=== PATIENT | male | born 1960 | race Caucasian/White ===

== ENCOUNTER 2021-05-24 12:20 | Inpatient (IN) | payer BC, MEDICAID ==
[~2021-05-24] VITALS: Ht 180.3 cm; Wt 81.6 kg
[2021-05-24 13:50] LABS: Albumin 2.7 g/dL (3.4-5.0); Calcium 7.9 mg/dL (8.5-10.1); Potassium 3.6 mmol/L (3.5-5.1)
[2021-05-24 13:52] LABS: BUN/Creatinine Ratio 14.8; CRP High Sensitivity 0.43 mg/dL (< 0.3); Total Protein 6.9 g/dL (6.4-8.2)
[2021-05-24 13:52] LABS: Urine Bacteria FEW /hpf (None Seen); Urine Blood 1+ /uL (Negative); Urine Hyaline Cast FEW /lpf (0 - 2); Urine Mucus FEW (None Seen); Urine Specific Gravity 1.023 (1.001-1.035); Urine WBC 2 /hpf (0 - 3)
[2021-05-24 14:24] LABS: Hematocrit 44.6 % (41.0-53.0); Mean Corpuscular Hgb Conc. 33.6 g/dL (32.0-36.0); Mean Corpuscular Volume 98.2 fL (80.0-100.0); Red Blood Cells 4.54 10^6/uL (4.5-5.90); Red Cell Distribution Width 15.6 % (11.8-14.3)
[2021-05-24 14:28] LABS: White Blood Cell 1.3 10^3/uL (4.4-10.8)
[2021-05-24 14:29] LABS: INR 1.42 (0.9-1.15); Partial Thromboplastin Time 36.4 sec (23.6-33.0)
[2021-05-24 14:29] LABS: Basophils % (manual) 0 (0.0-2.0); Blast Cells 0; Metamyelocytes % 0; Myelocytes % 0; Promyelocytes % 0; Reactive Lymphocytes 0
[2021-05-24 16:07] LABS: Band Neutrophils % (manual) 4; Eosinophils % (manual) 1 (0-7); Lymphocytes % (manual) 39 (10.0-50.0); Monocytes % (manual) 13 (0-12)
[2021-05-24] MEDS ORDERED: NITROGLYCERIN 0.4 MG SL TAB SL PRN (16:30)
[2021-05-24] MEDS ORDERED: MORPHINE SULFATE INJECTION 2 MG/ML SYRG IV PRN ×2 (16:30→18:45)
[2021-05-24] MEDS ORDERED: PANTOPRAZOLE 40 MG/10 ML VIAL INJ IV ONE (17:00)
[2021-05-24] MEDS ORDERED: cefTRIAXone 1GM/50ML D5W 50 ML IV ONE (18:45)
[2021-05-24] MEDS ORDERED: ONDANSETRON HCL 4 MG/2 ML VIAL IV PRN (18:45)
[2021-05-24] MEDS ORDERED: LORazepam 0.5 MG TAB PO PRN (18:45)
[2021-05-24] MEDS ORDERED: ALBUMIN 25% 100 ML IV ONE (18:45)
[2021-05-24] MEDS: ALBUMIN 25% 100 ML IV SCH (21:00)
[2021-05-24 21:23] LABS: Cholesterol 102 mg/dL (< 200); HDL Cholesterol 11 mg/dL (40-59); LDL Cholesterol 67 mg/dL (< 100); Triglycerides 101 mg/dL (< 150)
[2021-05-24] MEDS: LACTULOSE 20Gm/30ML SOLN PO SCH (23:29)
[2021-05-24] MEDS: PROPRANOLOL HCL 20 MG TAB PO SCH (23:48)
[2021-05-25] MEDS: LACTULOSE 20Gm/30ML SOLN PO SCH ×4 (02:00→13:14)
[2021-05-25] MEDS: ALBUMIN 25% 100 ML IV SCH ×2 (02:31→10:51)
[2021-05-25 08:38] VITALS: BP 129/89
[2021-05-25] MEDS ORDERED: cefTRIAXone 1GM/50ML D5W 50 ML IV SCH (09:00)
[2021-05-25] MEDS: PROPRANOLOL HCL 20 MG TAB PO SCH ×2 (09:16→21:20)
[2021-05-25] MEDS ORDERED: PANTOPRAZOLE 40 MG/10 ML VIAL INJ IV SCH (10:00)
[2021-05-25 10:05] LABS: Hemoglobin 13.2 g/dL (13.5-17.5)
[2021-05-25 10:08] LABS: Hematocrit 38.7 % (41.0-53.0); Mean Corpuscular Hemoglobin 33.4 pg (28.0-32.0); Mean Corpuscular Hgb Conc. 34.1 g/dL (32.0-36.0); Mean Corpuscular Volume 97.8 fL (80.0-100.0); Red Blood Cells 3.96 10^6/uL (4.5-5.90); Red Cell Distribution Width 15.6 % (11.8-14.3)
[2021-05-25 10:10] LABS: Potassium 3.8 mmol/L (3.5-5.1)
[2021-05-25 10:20] LABS: Folate (Folic Acid) 9.26 ng/mL (5.38-24)
[2021-05-25 10:44] LABS: White Blood Cell 1.2 10^3/uL (4.4-10.8)
[2021-05-25 10:46] LABS: Basophils % (manual) 0 (0.0-2.0); Blast Cells 0; Eosinophils % (manual) 0 (0-7); Metamyelocytes % 0; Myelocytes % 0; Promyelocytes % 0; Reactive Lymphocytes 0
[2021-05-25 10:47] LABS: Albumin 2.7 g/dL (3.4-5.0); BUN/Creatinine Ratio 14.5; Bilirubin, Total 0.9 mg/dL (0.2-1.0); Calcium 7.6 mg/dL (8.5-10.1); Magnesium 2.6 mg/dL (1.6-2.6); Phosphorus 2.7 mg/dL (2.5-4.90); Total Protein 5.8 g/dL (6.4-8.2)
[2021-05-25 10:53] LABS: INR 1.54 (0.9-1.15); Partial Thromboplastin Time 37.9 sec (23.6-33.0)
[2021-05-25 13:00] VITALS: BP 125/82
[2021-05-25 13:15] LABS: Band Neutrophils % (manual) 1; Lymphocytes % (manual) 40 (10.0-50.0); Monocytes % (manual) 14 (0-12)
[2021-05-25 16:31] VITALS: BP 113/78
[2021-05-25] MEDS: SPIRONOLACTONE 25 MG TAB PO SCH (17:05)
[2021-05-25 19:06] LABS: Alcohol, Urine < 3.0 mg/dL (0-10); Amphetamine Screen, Urine NEGATIVE (NEGATIVE); Barbiturate Scree,Urine NEGATIVE (NEGATIVE); Benzodiazephine Screen, Urine NEGATIVE (NEGATIVE); Cocaine Screen, Urine NEGATIVE (NEGATIVE); Opiate Scree,Urine NEGATIVE (NEGATIVE); Phencyclidine Screen, Urine NEGATIVE (NEGATIVE)
[2021-05-25 19:13] LABS: Cannabinoid Screen, Urine POSITIVE (NEGATIVE)
[2021-05-25 21:34] VITALS: BP 119/83
[2021-05-26 05:00] VITALS: BP 118/81
[2021-05-26] MEDS: SPIRONOLACTONE 25 MG TAB PO SCH (06:35)
[2021-05-26 08:33] VITALS: BP 129/92
[2021-05-26] MEDS ORDERED: PANTOPRAZOLE 40 MG TAB PO SCH (10:00)
[2021-05-26] MEDS: PROPRANOLOL HCL 20 MG TAB PO SCH (10:01)
[2021-05-26 10:44] LABS: Hepatitis B Surface Antibody Negative (Negative)
[2021-05-26 11:13] LABS: Hepatitis A Total Antibody Negative (Negative)
[2021-05-26] MEDS ORDERED: PROP20TA73 PO (11:26)
[2021-05-26] MEDS ORDERED: PANT40T PO (11:26)
[2021-05-26] MEDS ORDERED: FURO20TA3 PO (11:26)
[2021-05-26] MEDS ORDERED: SPIR25TA PO (11:26)
[2021-05-26 11:44] LABS: Hepatitis A Ab IgM Negative; Hepatitis B Core IgM Negative
[2021-05-26 11:46] LABS: Hepatitis C Antibody Positive (Negative)
[2021-05-26 11:52] LABS: Hepatitis C Antibody Positive (Negative)
[2021-05-26 12:00] VITALS: BP 136/90
== END 2021-05-26 13:27 | disposition home or self-care (01) | DRG 280 ==
LOC: ER 12:20 → TELE 16:20 → EAST 05-25 05:11 → TELE-EAST 05-25 05:40 → EAST 05-25 17:42
PROVIDERS: ADMIT Hospitalist; ATTEND Internal Medicine
PROC: 0W9G3ZZ Drainage of Peritoneal Cavity, Percutaneous Approach (ICD-10-PCS; principal; 2021-05-25)
DX: K70.11 Alcoholic hepatitis with ascites (principal); U07.1 COVID-19; D61.818 Other pancytopenia; D68.4 Acquired coagulation factor deficiency; K29.20 Alcoholic gastritis without bleeding; K72.90 Hepatic failure, unspecified without coma; K76.6 Portal hypertension; F10.10 Alcohol abuse, uncomplicated; D72.819 Decreased white blood cell count, unspecified; F17.210 Nicotine dependence, cigarettes, uncomplicated; F19.90 Other psychoactive substance use, unspecified, uncomplicated; K59.00 Constipation, unspecified; L03.119 Cellulitis of unspecified part of limb; K74.60 Unspecified cirrhosis of liver; Z80.9 Family history of malignant neoplasm, unspecified; Z83.3 Family history of diabetes mellitus
CPT/HCPCS: 36415; 49083; 71045; 74176; 76705; 76942; 80053; 80061; 80074; 80307; 81001; 82105; 82140; 82378; 82728; 82746; 83036; 83605; 83690; 83735; 83880; 83986; 84100; 84443; 84484; 84550; 85007; 85027; 85379; 85610; 85730; 86141; 86301; 86704; 86706; 86708; 86803; 87040; 87086; 87205; 87340; 87426; 89051; 93005; 93306; 96365; 96375; 99291; C9113; G0378; J0696; P9047

== ENCOUNTER → 2021-07-12 10:33 | Emergency (ER) | payer MEDICAID ==
[~2021-07-12] VITALS: Ht 180.3 cm; Wt 77.1 kg
[~2021-07-12 10:33] MED LIST: FURO20TA3 PO; PANT40T PO; PROP20TA73 PO; SPIR25TA PO
[2021-07-12 11:18] LABS: Basophils # (auto) 0.2 10 ^3/uL (0-0.2); Eosinophils # (auto) 0 10 ^3/uL (0-0.8); Lymphocytes # (auto) 0.8 10 ^3/uL (0.4-5.4); Lymphocytes % (auto) 14.8 % (10.0-50.0); White Blood Cell 5.4 10^3/uL (4.4-10.8)
[2021-07-12 11:19] LABS: Basophils % (auto) 3.5 % (0.0-2.0); Eosinophils % (auto) 0.1 % (0.0-7.0); Hematocrit 43.1 % (41.0-53.0); Mean Corpuscular Hemoglobin 34.7 pg (28.0-32.0); Mean Corpuscular Hgb Conc. 34.8 g/dL (32.0-36.0); Mean Corpuscular Volume 99.7 fL (80.0-100.0); Monocytes # (auto) 0.5 10 ^3/uL (0-1.3); Monocytes % (auto) 8.5 % (0.0-12.0); Neutrophils % (auto) 73.1 % (37.0-80.0); Nucleated Red Blood Cells % 0.2 %; Red Blood Cells 4.33 10^6/uL (4.5-5.90); Red Cell Distribution Width 17.8 % (11.8-14.3)
[2021-07-12 11:27] VITALS: BP 133/94
[2021-07-12 11:39] LABS: Albumin 2.7 g/dL (3.4-5.0); Calcium 8.8 mg/dL (8.5-10.1); Potassium 3.8 mmol/L (3.5-5.1)
[2021-07-12 11:45] LABS: BUN/Creatinine Ratio 17.6; Bilirubin, Total 2.8 mg/dL (0.2-1.0); Total Protein 7.2 g/dL (6.4-8.2)
[2021-07-12 13:36] LABS: INR 1.43 (0.9-1.15)
== END | disposition home or self-care (01) ==
LOC: ER 10:33
DX: K76.9 Liver disease, unspecified (principal); R18.8 Other ascites; R74.8 Abnormal levels of other serum enzymes; I10 Essential (primary) hypertension; F17.210 Nicotine dependence, cigarettes, uncomplicated; Z79.899 Other long term (current) drug therapy
CPT/HCPCS: 36415; 71045; 76705; 80053; 83690; 84484; 85025; 85610

== ENCOUNTER 2021-09-07 14:18 | Inpatient (IN) | payer MEDICAID ==
[~2021-09-07] VITALS: Ht 180.3 cm; Wt 74.3 kg
[2021-09-07] MEDS ORDERED: FUROSEMIDE 100 MG/10ML VIAL IV ONE (16:30)
[2021-09-07 17:35] LABS: Hematocrit 42.1 % (41.0-53.0)
[2021-09-07 17:36] LABS: Hemoglobin 14.8 g/dL (13.5-17.5); Mean Corpuscular Hemoglobin 37.8 pg (28.0-32.0); Mean Corpuscular Hgb Conc. 35.2 g/dL (32.0-36.0); Mean Corpuscular Volume 107.4 fL (80.0-100.0); Red Blood Cells 3.92 10^6/uL (4.5-5.90); Red Cell Distribution Width 15.6 % (11.8-14.3); White Blood Cell 10.5 10^3/uL (4.4-10.8)
[2021-09-07 17:39] LABS: Basophils % (manual) 0 (0.0-2.0); Blast Cells 0; Eosinophils % (manual) 0 (0-7); Metamyelocytes % 0; Myelocytes % 0; Promyelocytes % 0; Reactive Lymphocytes 0
[2021-09-07 17:45] LABS: Albumin 2.1 g/dL (3.4-5.0); Potassium 5.4 mmol/L (3.5-5.1)
[2021-09-07 17:47] LABS: BUN/Creatinine Ratio 22.5
[2021-09-07 17:59] LABS: Bilirubin, Total 15.7 mg/dL (0.2-1.0); Total Protein 6.9 g/dL (6.4-8.2)
[2021-09-07 18:26] LABS: INR 2.09 (0.9-1.15); Partial Thromboplastin Time 33.9 sec (23.6-33.0)
[2021-09-07 19:28] LABS: Band Neutrophils % (manual) 2; Lymphocytes % (manual) 6 (10.0-50.0); Monocytes % (manual) 6 (0-12)
[2021-09-07] MEDS ORDERED: SODIUM ZIRCONIUM CYCL 10 GM PAK PO ONE (21:30)
[2021-09-07] MEDS ORDERED: ONDANSETRON HCL 4 MG/2 ML VIAL IV PRN (21:30)
[2021-09-07] MEDS: PROPRANOLOL HCL 20 MG TAB PO SCH (22:00)
[2021-09-08 05:00] VITALS: BP 123/85
[2021-09-08 05:23] LABS: Hematocrit 41.2 % (41.0-53.0); Hemoglobin 14.5 g/dL (13.5-17.5); Mean Corpuscular Hemoglobin 38.1 pg (28.0-32.0); Mean Corpuscular Hgb Conc. 35.2 g/dL (32.0-36.0); Mean Corpuscular Volume 108.1 fL (80.0-100.0); Red Blood Cells 3.82 10^6/uL (4.5-5.90); Red Cell Distribution Width 16.5 % (11.8-14.3); White Blood Cell 17.7 10^3/uL (4.4-10.8)
[2021-09-08 05:40] LABS: Calcium 9.7 mg/dL (8.5-10.1); Potassium 5.3 mmol/L (3.5-5.1)
[2021-09-08 05:42] LABS: BUN/Creatinine Ratio 25.2
[2021-09-08 05:55] LABS: Bilirubin, Total 15.8 mg/dL (0.2-1.0); Total Protein 6.5 g/dL (6.4-8.2)
[2021-09-08] MEDS ORDERED: SPIRONOLACTONE 25 MG TAB PO SCH (06:00)
[2021-09-08 06:11] LABS: Band Neutrophils % (manual) 0; Basophils % (manual) 0 (0.0-2.0); Blast Cells 0; Eosinophils % (manual) 0 (0-7); Metamyelocytes % 0; Myelocytes % 0; Promyelocytes % 0; Reactive Lymphocytes 0
[2021-09-08 07:47] LABS: Lymphocytes % (manual) 15 (10.0-50.0); Monocytes % (manual) 8 (0-12)
[2021-09-08 08:32] VITALS: BP 103/66
[2021-09-08] MEDS: PROPRANOLOL HCL 20 MG TAB PO SCH ×2 (09:39→21:30)
[2021-09-08] MEDS: FUROSEMIDE 40 MG TAB PO SCH (09:40)
[2021-09-08] MEDS: PANTOPRAZOLE 40 MG TAB PO SCH (09:40)
[2021-09-08 13:00] VITALS: BP 121/74
[2021-09-08 17:00] VITALS: BP 94/69
[2021-09-08 22:00] VITALS: BP 114/62
[2021-09-09] VITALS (9 sets, daily range): BP systolic 79–124; BP diastolic 44–85
[2021-09-09] MEDS ORDERED: HYDROcodone-ACET 5/325MG TAB PO PRN (03:00)
[2021-09-09] MEDS ORDERED: MORPHINE SULFATE INJ 2 MG/ml SYRG IV PRN (03:00)
[2021-09-09 06:12] LABS: Hematocrit 41.7 % (41.0-53.0); Hemoglobin 14.6 g/dL (13.5-17.5); Mean Corpuscular Volume 108.5 fL (80.0-100.0); Red Blood Cells 3.84 10^6/uL (4.5-5.90); Red Cell Distribution Width 16.8 % (11.8-14.3); White Blood Cell 27.3 10^3/uL (4.4-10.8)
[2021-09-09 06:21] LABS: Band Neutrophils % (manual) 0; Basophils % (manual) 0 (0.0-2.0); Blast Cells 0; Metamyelocytes % 0; Myelocytes % 0; Promyelocytes % 0; Reactive Lymphocytes 0
[2021-09-09 06:24] LABS: INR 2.96 (0.9-1.15); Partial Thromboplastin Time 35.7 sec (23.6-33.0)
[2021-09-09 06:29] LABS: Albumin 2.1 g/dL (3.4-5.0); Calcium 9.2 mg/dL (8.5-10.1); Magnesium 2.9 mg/dL (1.6-2.6)
[2021-09-09 06:33] LABS: Bilirubin, Total 20.8 mg/dL (0.2-1.0); Total Protein 6.5 g/dL (6.4-8.2)
[2021-09-09 06:36] LABS: BUN/Creatinine Ratio 23.8
[2021-09-09 06:38] LABS: Potassium 6.1 mmol/L (3.5-5.1)
[2021-09-09] MEDS ORDERED: CALCIUM GLUC 1,000mg/50ml-NS 50 ML IV ONE (07:00)
[2021-09-09] MEDS ORDERED: ALBUTEROL SULF 2.5 MG/0.5ML(0.5%) NEB SOLN NEB ONE (07:00)
[2021-09-09] MEDS ORDERED: DEXTROSE (50%) 50ML SYRG IV ONE ×3 (07:00→11:15)
[2021-09-09] MEDS ORDERED: InsuLIN REG 1unit/0.01ml Soln (100units/ml) IV ONE (07:00)
[2021-09-09] MEDS ORDERED: SODIUM BICARBONATE 8.4 % INJ 50ML VIAL IV ONE (08:00)
[2021-09-09] MEDS: FUROSEMIDE 40 MG TAB PO SCH (09:33)
[2021-09-09] MEDS: PANTOPRAZOLE 40 MG TAB PO SCH (09:33)
[2021-09-09] MEDS: PROPRANOLOL HCL 20 MG TAB PO SCH (09:37)
[2021-09-09] MEDS ORDERED: D5W/SOD CHLO 0.9% 1,000 ML IV SCH (12:15)
[2021-09-09 13:33] LABS: Eosinophils % (manual) 1 (0-7); Lymphocytes % (manual) 10 (10.0-50.0); Monocytes % (manual) 10 (0-12)
[2021-09-09] MEDS ORDERED: PHYTONADIONE (VIT K)10 MG/ML 1ML VIAL SUBCUT ONE (14:45)
[2021-09-09] MEDS ORDERED: DEXTROSE (50%) 50ML SYRG IV PRN (15:30)
[2021-09-09] MEDS: ACCU-CHEK COMFORT CURVE STRIP VI SCH ×3 (16:03→20:00)
[2021-09-09] MEDS ORDERED: LACTULOSE 20Gm/30ML SOLN PO SCH (22:00)
== END 2021-09-09 23:34 | disposition hospice, home (50) | DRG 281 ==
LOC: ER 14:18 → OVERFLOW 21:21 → WEST WING 23:18 → TELE-WESTW 09-09 09:03
PROVIDERS: ADMIT Nurse Practitioner; ATTEND Internal Medicine
DX: C22.0 Liver cell carcinoma (principal); E43 Unspecified severe protein-calorie malnutrition; K72.90 Hepatic failure, unspecified without coma; N17.9 Acute kidney failure, unspecified; D68.9 Coagulation defect, unspecified; R18.8 Other ascites; E88.09 Other disorders of plasma-protein metabolism, not elsewhere classified; K74.60 Unspecified cirrhosis of liver; B19.20 Unspecified viral hepatitis C without hepatic coma; E78.5 Hyperlipidemia, unspecified; Z66 Do not resuscitate; F12.90 Cannabis use, unspecified, uncomplicated; Z20.822 Contact with and (suspected) exposure to COVID-19; F17.210 Nicotine dependence, cigarettes, uncomplicated; I10 Essential (primary) hypertension; Z68.22 Body mass index [BMI] 22.0-22.9, adult; E87.5 Hyperkalemia; Z53.9 Procedure and treatment not carried out, unspecified reason; D72.829 Elevated white blood cell count, unspecified; Z85.05 Personal history of malignant neoplasm of liver
CPT/HCPCS: 36415; 71045; 76700; 80053; 82140; 82962; 83735; 83880; 84484; 85007; 85027; 85610; 85730; 86850; 86900; 86901; 96374; 96375; G0378; J1815; J3430; J7042